=== PATIENT | female | born 1970 | race Caucasian/White ===

== ENCOUNTER 2016-10-26 18:19 | Emergency (ER) | payer OTHER ==
--- NOTE | ~2016-10-26 | US67 ---
[facility] A Service of [facility] RADIOLOGY TEXT RESULTS PATIENT: LATOYA MCRAE LOCATION: [facility] : 72 UNIT #: [id number] AGE: [address]: Jian Vega MD SEX: F ORDER DR: [id number] [facility] [address] [facility]. [place], [place] [address] [id number] E MR#: [id number] Acc #: [id number] NAME: LATOYA MCRAE : 1970 SEX: F STUDY DATE/TIME: 10/26/2016 20:29 UNIT: JUNAID ROOM: STUDY DESCRIPTION: Gallbladder Attending Physician: Jian Vega M.D. Ordering Physician: Jian Vega M.D. Primary Care Physician: Molly Crow M.D. MEDICAL IMAGING REPORT This report is preliminary unless electronic signature is present EXAM Gallbladder ultrasound, 10/26/2016 HISTORY 46-year-old female with abdominal pain for 2 weeks, worsening over the last 2 days. COMPARISON None. FINDINGS Real-time cottrell-scale and color Doppler imaging of the right upper quadrant of the abdomen was performed. The liver is normal in size and echogenicity without mass or ductal dilatation. Gallbladder is free of stones or wall thickening. There are some tiny echoes noted within the gallbladder, which are likely secondary to bowel gas artifact. No pericholecystic fluid. Common bile duct is within normal limits, measuring 3 mm in diameter. Visualized pancreas is unremarkable. Right kidney is within normal limits. IMPRESSION Negative gallbladder ultrasound. Dictated by... Mor Delcid M.D. THIS IS AN ELECTRONICALLY VERIFIED REPORT Mor Delcid M.D. at 10/26/2016 10:55 PM ALEC/maria dolores TD: 10/26/2016 22:32 JOB #: [id number] [facility] A Service of [facility] RADIOLOGY TEXT RESULTS PATIENT: LATOYA MCRAE LOCATION: [facility] : 72 UNIT #: [id number] AGE: [address]: Jian Vega MD SEX: F ORDER DR: MEDICAL IMAGING REPORT Page 1 of 1 COPY
[~2016-10-26 18:19] MED LIST: TRAZODONE PO; ZOLOFT PO
[2016-10-26 19:27] LABS: BASOPHIL# 0.1 X10e3 (0-0.3); BASOPHIL% 1.1 % (0-2.5); EOSINOPHIL# 0.2 X10e3 (0-0.7); EOSINOPHIL% 2.6 % (0.0-7.0); HEMATOCRIT 45.1 % (35.0-45.0); HEMOGLOBIN 15.2 gm/dL (12.0-16.0); LYMPHOCYTE% 24.5 % (17.0-45.0); MEAN CELL VOLUME 94.9 FL (83-96); MEAN CORPUSCULAR HGB CONC 33.7 g/dL (30-36); MEAN PLATELET VOLUME 7.4 FL (6.5-11.5); MONOCYTE# 0.4 X10e3 (0-1.0); MONOCYTE% 4.9 % (3.0-12.0); NEUTROPHIL# 5.6 X10e3 (1.5-7.1); NEUTROPHIL% 66.9 % (40-75); PLATELET COUNT 200 X10e3 (140-420); RED BLOOD COUNT 4.75 X10e (3.90-5.30); RED CELL DISTRIBUTION WIDTH 14.5 % (11.0-15.5); WHITE BLOOD COUNT 8.3 X10e3 (4.0-10.5)
[2016-10-26 19:29] LABS: DIFF IND NO
[2016-10-26 19:34] LABS: URINE SOURCE CLEAN CATCH
[2016-10-26 19:38] LABS: URINE APPEARANCE CLEAR; URINE BILIRUBIN NEG (NEG); URINE BLOOD NEG (NEG); URINE COLOR YELLOW; URINE GLUCOSE NEG (NEG); URINE KETONE 2+ (NEG); URINE LEUKOCYTE ESTERASE NEG (NEG); URINE NITRATE NEG (NEG); URINE PH 5.5 (5-8); URINE PROTEIN 1+ (NEG); URINE SPECIFIC GRAVITY 1.026 (1.003-1.035)
[2016-10-26 19:40] LABS: CULTURE INDICATED? YES; URBCS1 AUWI 0-2 /[HPF] (0-2); URINE BACTERIA AUWI 1+ (NEGATIVE); URINE SQUAMOUS EPITHELIAL CELL FEW /[HPF]
[2016-10-26 19:52] LABS: ALBUMIN SERUM 3.9 g/dL (3.5-5.0); BILIRUBIN, DIRECT 0.1 mg/dL (0.0-0.2); BILIRUBIN,INDIRECT 0.3 mg/dL (0.0-0.9); BILIRUBIN,TOTAL 0.4 mg/dL (0.2-2.0); BUN/CREATININE RATIO 12.22; CREATININE SERUM 0.9 mg/dL (0.6-1.4); GLOM FILT RATE Estimated 77.8 mL/min (>60); POTASSIUM 3.6 mmol/L (3.5-5.1)
[2017-03-01] MEDS ORDERED: TRAZODONE HCL300 MG PO (12:14)
[2017-03-01] MEDS ORDERED: ZOLOFT PO (12:14)
[2017-03-01] MEDS ORDERED: PROTONIX PO (12:15)
[2017-03-01] MEDS ORDERED: CARAFATE PO (12:15)
[2017-03-01] MEDS ORDERED: TIZANIDINE HCL4 M1 PO (12:15)
[2017-03-01] MEDS ORDERED: ZOFRAN PO (12:16)
== END 2016-10-26 22:20 | disposition home or self-care (01) ==
LOC: CED 18:19
PROVIDERS: Emergency Medicine
DX: R10.9 Unspecified abdominal pain (principal); R11.0 Nausea; M54.9 Dorsalgia, unspecified; F50.89 Other specified eating disorder; F17.200 Nicotine dependence, unspecified, uncomplicated; Z98.890 Other specified postprocedural states
CPT/HCPCS: 36415; 76705; 80048; 80076; 81003; 82150; 83690; 84703; 85025; 87086; 96361; 96374; 96375; 99284; J2270; J2405

== ENCOUNTER 2016-11-07 15:44 | Emergency (ER) | payer OTHER ==
--- NOTE | ~2016-11-07 | CT2 ---
[facility] A Service of [facility] RADIOLOGY TEXT RESULTS PATIENT: LATOYA MCRAE LOCATION: [facility] : 72 UNIT #: [id number] AGE: [address]: Vijay Ayoub DO SEX: F ORDER DR: [id number] [facility] [address] [place], [place] [address] [id number] E MR#: [id number] Acc #: [id number] NAME: LATOYA MCRAE : 1970 SEX: F STUDY DATE/TIME: 11/07/2016 18:13 UNIT: [facility] ROOM: STUDY DESCRIPTION: CT Abd and Pelv W Cont Attending Physician: Vijay Ayoub D.O. Ordering Physician: Vijay Ayoub D.O. Primary Care Physician: Molly Crow M.D. MEDICAL IMAGING REPORT This report is preliminary unless electronic signature is present EXAM CT abdomen and pelvis, 11/07/2016 HISTORY Abdominal pain. Right flank pain, nausea and vomiting for 2 days. Blood in emesis. Right upper quadrant pain. This CT exam was performed with one or more of the following radiation dose reduction techniques: automatic exposure control, adjustment of mA and/or kV according to patient size, and iterative reconstruction. FINDINGS CT abdomen and pelvis performed with intravenous administration 100 mL Isovue-370. Enteric contrast also administered. No prior CT abdomen and pelvis for comparison. Lung bases show dependent atelectasis. Inferior heart and pericardium unremarkable. Liver appears somewhat lower in overall density than the spleen. Nonspecific appearance on contrast-enhanced study but suggestive of diffuse fatty infiltration. More typical-appearing localized focal fatty infiltration in the left hepatic lobe flanking the falciform ligament. The liver is mildly enlarged measuring about 19.6 cm in craniocaudal extent. There is no clearly suspicious focal hepatic parenchymal abnormality. The gallbladder is unremarkable. Spleen, pancreas, adrenal glands unremarkable. Mild left pyelocaliectasis with no obstructing process seen. No ureteral dilatation. No perinephric inflammatory change. CT PELVIS: No inguinal adenopathy. Urinary bladder unremarkable. Uterus and adnexal regions unremarkable. No free fluid in the pelvis. No pelvic or retroperitoneal adenopathy. Distal esophagus, stomach, small bowel unremarkable. The appendix is in the deep right hemipelvis and is normal in appearance. Colon unremarkable. Vascular structures appear normal in caliber. No acute-appearing bony abnormality. Status post posterior STS. [facility] A Service of [facility] RADIOLOGY TEXT RESULTS PATIENT: LATOYA MCRAE LOCATION: [facility] : 74 UNIT #: [id number] AGE: [address]: Vijay Ayoub DO SEX: F ORDER DR: orthopedic fusion L2-L3 and anterior orthopedic fusion L3-L4. The visualized spinal hardware is intact. Degenerative changes L2-L3 with mild perhaps 1 mm retrolisthesis L2 on L3. Small posterior disc bulges L4-L5, L5-S1. No spinal stenosis. No acute-appearing bony abnormality. IMPRESSION 1. There is no clearly acute abnormality within the abdomen or pelvis. 2. Diffuse fatty infiltration of the liver with more localized areas of focal fatty infiltration flanking the falciform ligament in left hepatic lobe. 3. Mild hepatic enlargement. Liver measures 19.6 cm in craniocaudal extent. 4. Gallbladder, pancreas, appendix unremarkable. 5. No acute appearing renal abnormality. There is mild left-sided pyelocaliectasis with no obstructing process seen. No perinephric inflammatory change. No ureteral dilatation. 6. Remainder of alimentary canal unremarkable. 7. Uterus and adnexal structures unremarkable. 8. Posterior orthopedic fusion L2-L3, and anterior orthopedic fusion L3-L4. Orthopedic hardware intact without evidence of loosening or failure. No acute-appearing bony abnormality. Dictated by... Willam Garcia M.D. THIS IS AN ELECTRONICALLY VERIFIED REPORT Willam Garcia M.D. at 11/08/2016 2:21 PM ELAINA/francisco TD: 11/07/2016 23:10 JOB #: [id number] MEDICAL IMAGING REPORT Page 1 of 1 COPY
[2016-11-07 16:29] LABS: URINE SOURCE CLEAN CATCH
[2016-11-07 16:32] LABS: BASOPHIL# 0.1 X10e3 (0-0.3); BASOPHIL% 0.9 % (0-2.5); EOSINOPHIL# 0.1 X10e3 (0-0.7); HEMATOCRIT 49.3 % (35.0-45.0); HEMOGLOBIN 16.2 gm/dL (12.0-16.0); LYMPHOCYTE# 1.5 X10e3 (1.0-3.5); LYMPHOCYTE% 18.7 % (17.0-45.0); MEAN CELL VOLUME 95.6 FL (83-96); MEAN CORPUSCULAR HEMOGLOBIN 31.4 PG (28-34); MEAN CORPUSCULAR HGB CONC 32.9 g/dL (30-36); MEAN PLATELET VOLUME 7.4 FL (6.5-11.5); MONOCYTE# 0.4 X10e3 (0-1.0); MONOCYTE% 5.2 % (3.0-12.0); NEUTROPHIL% 74.2 % (40-75); PLATELET COUNT 242 X10e3 (140-420); RED BLOOD COUNT 5.15 X10e (3.90-5.30); RED CELL DISTRIBUTION WIDTH 14.6 % (11.0-15.5)
[2016-11-07 16:38] LABS: URINE APPEARANCE CLEAR; URINE BILIRUBIN NEG (NEG); URINE BLOOD NEG (NEG); URINE COLOR YELLOW; URINE GLUCOSE NEG (NEG); URINE KETONE NEG (NEG); URINE LEUKOCYTE ESTERASE NEG (NEG); URINE NITRATE NEG (NEG); URINE PH 5.5 (5-8); URINE PROTEIN NEG (NEG); URINE SPECIFIC GRAVITY 1.005 (1.003-1.035); URINE UROBILINOGEN 0.2 MG/DL (NEG)
[2016-11-07 16:42] LABS: DIFF IND NO
[2016-11-07 16:45] LABS: CULTURE INDICATED? NO
[2016-11-07 16:55] LABS: POC - CKMB <1.0 ng/mL (0.0-7.9); POC - TROPONIN <0.05 ng/mL (<=0.05)
[2016-11-07 16:58] LABS: PROTHROMBIN TIME (PATIENT) 10.3 SECONDS (9.6-11.5)
[2016-11-07 17:01] LABS: ALBUMIN SERUM 4.4 g/dL (3.5-5.0); BILIRUBIN, DIRECT 0.1 mg/dL (0.0-0.2); BILIRUBIN,INDIRECT 0.3 mg/dL (0.0-0.9); BILIRUBIN,TOTAL 0.4 mg/dL (0.2-2.0); BUN/CREATININE RATIO 9.09; CALCIUM SERUM 9.3 mg/dL (8.4-10.2); CREATININE SERUM 1.1 mg/dL (0.6-1.4); POTASSIUM 3.8 mmol/L (3.5-5.1)
[2017-03-01] MEDS ORDERED: TRAZODONE HCL300 MG PO (12:14)
[2017-03-01] MEDS ORDERED: ZOLOFT PO (12:14)
[2017-03-01] MEDS ORDERED: CARAFATE PO (12:15)
[2017-03-01] MEDS ORDERED: PROTONIX PO (12:15)
[2017-03-01] MEDS ORDERED: TIZANIDINE HCL4 M1 PO (12:15)
[2017-03-01] MEDS ORDERED: ZOFRAN PO (12:16)
== END 2016-11-07 20:00 | disposition home or self-care (01) ==
LOC: CED 15:44
PROVIDERS: Emergency Medicine
DX: R10.9 Unspecified abdominal pain (principal); R11.2 Nausea with vomiting, unspecified; R19.7 Diarrhea, unspecified; Z79.899 Other long term (current) drug therapy; F17.200 Nicotine dependence, unspecified, uncomplicated
CPT/HCPCS: 36415; 74177; 80048; 80076; 81003; 82553; 83690; 84484; 84703; 85025; 85610; 85730; 96361; 96374; 96375; 99284; C9113; J2270; J2405; Q9967

== ENCOUNTER 2016-12-19 10:50 | Inpatient (IN) | payer OTHER ==
--- NOTE | ~2016-12-19 | A ---
[facility] Nutrition Therapy DATE: 12/20/16 Patient: LATOYA MCRAE Physician: XAVIER Address: [address] [facility] Room/Bed: [address] [place] [address], Zip: [place] [address] Admit Date: 12/19/16 Date of : 74 Height: 5 9 Weight: 130 59 NUTRITIONAL ASSESSMENT: REASON: 2 NUTRITION RISK PT RE: WEIGHT LOSS PT IS 46 Y.O. FEMALE ADMITTED FOR ABD PAIN PMH: NO H&P IN MEDITECH /CHART Anthropometrics: 5'9", WT: 130# (59 KG), BMI: 19.2, 90%IBW Labs: LIPASE: 20, GFR: 54.9 Meds: PHENERGAN, PROTONIX, KCL I/O & Bowel function: 2109/1700 Skin Integrity: NO KNOWN SKIN ISSUES Estimated Nutrition Needs: INCREASED NEEDS 2' WEIGHT LOSS NOTED, CURRENT CONDITION Assessment: CHART REVIEWED AND EVENTS NOTED. PT SEEN FOR WEIGHT LOSS. PT REPORTS DECREASED PO INTAKE AND APPETITE PAST SEVERAL MONTHS 2' CHRONIC DIARRHEA AND VOMITING NOTED. PT AND FAMILY REPORT PT HAS LOST ~15# PAST 6 MONTHS/10% MODERATE WEIGHT LOSS NOTED. PLANS IN PLACE FOR PT'S DIET TO ADVANCE TO FULL LIQUID S/P EGD. EGD REVEALED GASTRITIS AND GASTRIC ULCER. THIS RD ENCOURGAED SLOW GRADUAL PO INTAKE + SUPPLEMENTS, PT AGREED TO ENSURE SHAKES BID, RD WILL ORDER. RD ALSO PROVIDED WRITTEN AND VERBAL LOW FIBER DIET EDUCATION. PT AND FAMILY DEMONSTRATED UNDERSTANDING OF THE TOPIC, REPORTED NO DIET QUESTIONS. RD TO FOLLOW/REMAIN AVAILABLE. SEE RECOMMENDATIONS BELOW. Dx: INADEQUATE PROTEIN-ENERGY INTAKE R/T CHRONIC DIARRHEA, VOMITING AEB PT REPORT OF DECREASED PO INTAKE AND APPETITE, ~15# WEIGHT LOSS IN PAST 6 MONTHS (10%), LOW BMI NOTED. Intervention: 1. FULL LIQUID DIET 2. ENSURE SHAKES BID 3. WRITTEN/VERBAL LOW FIBER DIET EDUCATION Monitoring, Evaluation and Goals: 1. ORAL INTAKE; ADVANCE DIET AND TOLERATE >50% OF MEALS AND SUPPLEMENTS 2. WEIGHTS; PREVENT FURTHER WEIGHT LOSS; PRESERVE LEAN BODY MASS 3. GI; PROMOTE REGULAR BOWEL FUNCTION MONITOR: -DIET ADVANCEMENT [facility] Nutrition Therapy DATE: 12/20/16 Patient: LATOYA MCRAE Physician: XAVIER Address: [address] Room/Bed: [address] [place] [address], Zip: [place] [address] Admit Date: 12/19/16 Date of : 74 Height: 5 9 Weight: 130 59 -PO INTAKE/APPETITE -WEIGHTS -SUPPLEMENT INTAKE -EDUCATION NEEDS Recommendations: 1. PLEASE ORDER [place]Y ENSURE SHAKES BID W/MEALS 2. ONCE MEDICALLY FEASIBLE, ADVANCE DIET TOLERATED TO LOW FIBER 2' CURRENT CLINICAL CONDITION 3. APPRECIATE FAMILY AND STAFF TO ENCOURAGE ADEQUATE PO INTAKE RD WILL F/U PER PROTOCOL PT IS MILD/MODERATELY COMPROMISED Respectfully, BOBBI SEGURA MS, RD, LD Food and Nutritional Services [facility] cc: client file
--- NOTE | ~2016-12-19 | NM22 ---
[facility] A Service of [facility] RADIOLOGY TEXT RESULTS PATIENT: LATOYA MCRAE LOCATION: A 230-01 : 74 UNIT #: [id number] AGE: [address]: Chris Spicer III, MD SEX: F ORDER DR: [id number] [facility] [address]. [place], [place] [address] [id number] I MR#: [id number] Acc #: [id number] NAME: LATOYA MCRAE : 1970 SEX: F STUDY DATE/TIME: 12/19/2016 13:56 UNIT: A ROOM: 230 STUDY DESCRIPTION: NM Hepatobiliary W GB Pharm Attending Physician: Chris Spicer III, M.D. Ordering Physician: Chris Spicer III, M.D. Primary Care Physician: Molly Crow M.D. MEDICAL IMAGING REPORT This report is preliminary unless electronic signature is present EXAM HIDA scan with Kinevac 12/19/2016 HISTORY 2-month history of intermittent right upper quadrant abdominal/epigastric pain, worsening over the past month. TECHNIQUE Study of 45.67 mCi Tc-99m Choletec followed by 1.2 mcg of Kinevac. FINDINGS Following Choletec administration, there is prompt uptake, clearance from blood pool, excretion into the biliary tree, including the gallbladder and small bowel. Following Kinevac administration, calculated gallbladder ejection fraction is 82%. IMPRESSION Normal HIDA scan and normal gallbladder ejection fraction of 82%. STAT * RESULT Dictated by... Andres Banks M.D. THIS IS AN ELECTRONICALLY VERIFIED REPORT Andres Banks M.D. at 12/28/2016 10:23 AM TEV/pcl TD: 12/19/2016 16:29 [facility] A Service [facility] RADIOLOGY TEXT RESULTS PATIENT: LATOYA MCRAE LOCATION: [facility] 230-01 : 74 UNIT #: [id number] AGE: [address]: Chris Spicer III, MD SEX: F ORDER DR: JOB #: [id number] MEDICAL IMAGING REPORT Page 1 of 1 COPY
--- NOTE | ~2016-12-19 | OR ---
Unit #: [id number] #: [id number] Patient: LATOYA MCRAE [id number] [address] [address] [id number] I MR#: [id number] NAME: LATOYA MCRAE ROOM: 230 Date of Procedure: 12/20/2016 Admission Date: 12/19/2016 Surgeon: Davide Gardner M.D. : 1970 Attending Physician: Chris Spicer III, M.D. Primary Care Physician: Molly Crow M.D. OPERATIVE REPORT PREOPERATIVE DIAGNOSES Severe nausea and vomiting and chronic diarrhea. POSTOPERATIVE DIAGNOSIS Wdgbxqli-ex-qegpra gastritis with a superficial gastric ulcer in the antrum. PROCEDURE PERFORMED Esophagogastroduodenoscopy to third portion of duodenum with biopsy of the antrum for CLOtesting and pathology. ANESTHESIA Monitored anesthesia. INDICATIONS FOR PROCEDURE Ms. Mcrae is a 46-year-old female, who has been complaining of epigastric pain, associated nausea, vomiting, and weight loss for several months. She has also had some chronic diarrhea for about 3 months. She states she has lost 15 pounds and has had anorexia. CT scan, ultrasound, HIDA scan all were normal and her comprehensive metabolic panel, amylase, lipase, and CBC were normal. She does relate that she was treated for sinusitis and bronchitis with antibiotics several months ago. She denies any melena, hematochezia, or hematemesis. She is on multiple chronic medications for back pain as she has had 2 back surgeries with instrumentation. DESCRIPTION OF PROCEDURE The patient was transported from her hospital room to the endoscopy suite and after appropriate monitoring, a bite block was placed and she was sedated by the anesthesiologist. The endoscope was passed through the oral cavity in the esophagus and under direct vision, we passed through the esophagus into the stomach. The GE junction was well demarcated at 40 cm. There was no hiatal hernia. No esophagitis and no Moser mucosa. The stomach was insufflated. As we passed towards the antrum, she had progressively worsening gastritis and in the antrum, she had a very superficial gastric ulcer. It was benign in appearance. I was able to pass through the pylorus down the third portions of the duodenum. The duodenum and duodenal bulb were normal. As I came back into the antrum, a biopsy for CLOtest was taken and then biopsies from the ulcer edge were taken for pathology. In retroflexing the scope above the incisura, the upper fundus and cardia showed no other pathology. In retrograde visualization, the esophagus and larynx were normal. The patient Unit #: [id number] #: [id number] Patient: LATOYA MCRAE tolerated the procedure well and was transported to recovery in stable condition. She will be started on a proton pump inhibitor and Carafate for her gastric ulcer and gastritis as we await the pathology and CLOtesting. Stool studies have been ordered as have celiac disease serology. We will start her on a full liquid diet and advance her as she tolerates. After the stool studies were obtained since she has had previous treatment with antibiotics for a bronchitis and sinus infection, we will empirically start some oral vancomycin until the C. difficile testing rules out C difficile colitis or enteritis. Dictated by... Pedro Kaur/dhiraj TD: 12/20/2016 10:43 JOB #: [id number] OPERATIVE REPORT Page 1 of 1 X Davide Gardner MD PROCEDURE OPERATIVE NOTE
--- NOTE | ~2016-12-19 | DS ---
Unit #: [id number] #: [id number] Patient: LATOYA MCRAE [id number] [address] [place], [place] [address] [id number] I MR#: [id number] NAME: LATOYA MCRAE ROOM: 230 Age: 46 Sex: F Admission Date: 12/19/2016 : 1970 Discharge Date: 12/22/2016 Attending Physician: Chris Spicer III, M.D. Primary Care Physician: Molly Crow M.D. DISCHARGE SUMMARY DISCHARGE DIAGNOSIS Midepigastric abdominal pain secondary to peptic ulcer disease with possible irritable bowel syndrome and colitis. OPERATIVE PROCEDURE Esophagogastroduodenoscopy. DISCHARGE MEDICATIONS Home medications plus: 1. Flagyl 500 mg 1 p.o. b.i.d. 2. Carafate 1 g 1 p.o. t.i.d. 3. Protonix 40 mg 1 p.o. b.i.d. HISTORY OF PRESENT ILLNESS AND HOSPITAL COURSE This is a 46-year-old, white female who presented with nausea, vomiting, and tense crampy abdominal pain. It was felt that she may have either some type of peptic ulcer disease or inflammatory bowel disease. She said she had a funny feeling in her substernal area. We went ahead and did a HIDA biliary scan, which was normal. We also did upper endoscopy per Dr. Gardner, which showed gastric ulcer disease and gastritis. She was placed on oral Flagyl for possible irritable bowel symptoms. Multiple stool cultures were taken. It was suggested to the patient that she may need eventually an outpatient colonoscopy. Patient, however, at this point in time, has improved. She is a regular diet. She is tolerating it quite nicely. She was ready to be discharged to come back to our clinic. We will go ahead and put her on Protonix, Carafate, and Flagyl orally. We will see her back for followup in the clinic. Dictated by... Pedro Grimaldo/guicho TD: 12/22/2016 11:55 JOB #: [id number] Unit #: [id number] #: [id number] Patient: LATOYA MCRAE DISCHARGE SUMMARY Page 1 of 1 X Dwayne Macdonald MD DISCHARGE SUMMARY
[2016-12-19] MEDS ORDERED: HYDROCODON-ACE1 EAC7 PO (12:50)
[2016-12-19] MEDS ORDERED: GABAPENTIN600 MG PO (12:50)
[2016-12-19] MEDS ORDERED: IBUPROFEN800 MG PO (12:51)
[2016-12-19] MEDS ORDERED: PROTONIX PO (12:54)
[2016-12-19] MEDS ORDERED: ZOFRAN8 MG PO (12:54)
[2016-12-19] MEDS ORDERED: PHENERGAN25 M1 PO (12:56)
[2016-12-19] MEDS ORDERED: ZOLOFT100 MG PO (12:57)
[2016-12-19] MEDS ORDERED: TRAZODONE HCL150 MG PO (12:57)
[2016-12-19] MEDS ORDERED: ZANAFLEX4 M1 PO (12:57)
[2016-12-19 16:06] LABS: HEMATOCRIT 49.6 % (35.0-45.0); HEMOGLOBIN 16.2 gm/dL (12.0-16.0); MEAN CELL VOLUME 93.9 FL (83-96); MEAN CORPUSCULAR HEMOGLOBIN 30.6 PG (28-34); MEAN CORPUSCULAR HGB CONC 32.6 g/dL (30-36); MEAN PLATELET VOLUME 7.4 FL (6.5-11.5); RED BLOOD COUNT 5.29 X10e (3.90-5.30); RED CELL DISTRIBUTION WIDTH 14.3 % (11.0-15.5); WHITE BLOOD COUNT 7.5 X10e3 (4.0-10.5)
[2016-12-19 16:41] LABS: ALBUMIN SERUM 4.6 g/dL (3.5-5.0); BILIRUBIN,TOTAL 0.6 mg/dL (0.2-2.0); BUN/CREATININE RATIO 10.83; CALCIUM SERUM 9.6 mg/dL (8.4-10.2); CREATININE SERUM 1.2 mg/dL (0.6-1.4); GLOM FILT RATE Estimated 54.9 mL/min (>60); POTASSIUM 4.6 mmol/L (3.5-5.1); PROTEIN TOTAL SERUM 8.1 g/dL (6.0-8.3)
[2016-12-19 18:32] LABS: URINE APPEARANCE CLEAR; URINE BILIRUBIN NEG (NEG); URINE BLOOD NEG (NEG); URINE COLOR YELLOW; URINE GLUCOSE NEG (NEG); URINE KETONE TRACE (NEG); URINE LEUKOCYTE ESTERASE NEG (NEG); URINE NITRATE NEG (NEG); URINE PROTEIN 1+ (NEG); URINE SPECIFIC GRAVITY 1.028 (1.003-1.035)
[2016-12-19 18:36] LABS: U HYALINE CASTS AUWI 0-2 /[LPF]; URBCS1 AUWI 0-2 /[HPF] (0-2); URINE BACTERIA AUWI NEG (NEGATIVE); URINE SQUAMOUS EPITHELIAL CELL OCC /[HPF]; UWBCS1 AUWI 0-2 (0-5)
[2016-12-22] MEDS ORDERED: FLAGYL PO (06:21)
[2016-12-22] MEDS ORDERED: CARAFATE1 GM PO (06:21)
[2016-12-22] MEDS ORDERED: PROTONIX PO (06:22)
[2016-12-23 20:52] LABS: GLIADIN IGA AB 5 Units (<20); GLIADIN IGG AB 4 Units (<20); RETICULIN IGA SCREEN W/REFLEX Negative (Negative); TISSUE TRANSGLUTAMINASE IGA AB 1 U/mL (<4)
[2017-03-01] MEDS ORDERED: TRAZODONE HCL300 MG PO (12:14)
[2017-03-01] MEDS ORDERED: ZOLOFT PO (12:14)
[2017-03-01] MEDS ORDERED: TIZANIDINE HCL4 M1 PO (12:15)
[2017-03-01] MEDS ORDERED: PROTONIX PO (12:15)
[2017-03-01] MEDS ORDERED: CARAFATE PO (12:15)
[2017-03-01] MEDS ORDERED: ZOFRAN PO (12:16)
== END 2016-12-22 07:46 | disposition home or self-care (01) | DRG 384 ==
LOC: C2A 10:50 → UNDOADMOB 10:54 → C2A 12-22 07:46
PROVIDERS: Specialist; Surgery
PROC: 0DB78ZX Excision of Stomach, Pylorus, Via Natural or Artificial Opening Endoscopic, Diagnostic (ICD-10-PCS; principal; 2016-12-20 09:45)
DX: K25.9 Gastric ulcer, unspecified as acute or chronic, without hemorrhage or perforation (principal); Z68.1 Body mass index [BMI] 19.9 or less, adult; K29.70 Gastritis, unspecified, without bleeding; K58.0 Irritable bowel syndrome with diarrhea; R63.6 Underweight; F41.9 Anxiety disorder, unspecified; Z87.891 Personal history of nicotine dependence; E86.0 Dehydration
CPT/HCPCS: 78227; 80053; 81003; 82150; 82274; 83516; 83630; 83690; 85027; 86255; 87045; 87077; 87177; 87209; 87427; 87493; 87899; 88305; 88312; A9537; C9113; J2270; J2550; J2805

== ENCOUNTER 2017-01-31 15:22 | Emergency (ER) | payer OTHER ==
[~2017-01-31] VITALS: Ht 175.3 cm; Wt 61.2 kg
--- NOTE | ~2017-01-31 | CR127 ---
[facility] A Service of [facility] RADIOLOGY TEXT RESULTS PATIENT: LATOYA MCRAE LOCATION: [place] : 74 UNIT #: [id number] AGE: [address]: Cary Uriarte APRN SEX: F ORDER DR: [id number] [facility] [address] [place], [place] [address] [id number] E MR#: [id number] Acc #: [id number] NAME: LATOYA MCRAE : 1970 SEX: F STUDY DATE/TIME: 01/31/2017 15:48 UNIT: [facility] ROOM: STUDY DESCRIPTION: CR Foot Complete Min 3 View Rt Attending Physician: Cary Uriarte A.P.R.N. Referring Physician: Gregorio Neely M.D. Ordering Physician: Ed Misha Smiley M.D. Primary Care Physician: Molly Crow M.D. MEDICAL IMAGING REPORT This report is preliminary unless electronic signature is present EXAM Right foot, complete, 3 views. HISTORY Dropped a chair on her foot yesterday and has pain at the dorsum of the foot. COMMENT Three views of the right foot are reviewed. COMPARISON No previous. FINDINGS No acute fracture, dislocation, or radiopaque foreign body. IMPRESSION Negative plain film assessment, right foot. Dictated by... Calli Little M.D. THIS IS AN ELECTRONICALLY VERIFIED REPORT Calli Little M.D. at 01/31/2017 11:33 PM GRETCHEN/susan TD: 01/31/2017 22:18 JOB #: [id number] MEDICAL IMAGING REPORT Page 1 of 1 COPY
[~2017-01-31 15:22] MED LIST changes: +CARAFATE1 GM PO; +FLAGYL PO; +GABAPENTIN600 MG PO; +HYDROCODON-ACE1 EAC7 PO; +IBUPROFEN800 MG PO; +PHENERGAN25 M1 PO; +PROTONIX PO; +TRAZODONE HCL150 MG PO; +ZANAFLEX4 M1 PO; +ZOFRAN8 MG PO; +ZOLOFT100 MG PO
[2017-03-01] MEDS ORDERED: TRAZODONE HCL300 MG PO (12:14)
[2017-03-01] MEDS ORDERED: ZOLOFT PO (12:14)
[2017-03-01] MEDS ORDERED: PROTONIX PO (12:15)
[2017-03-01] MEDS ORDERED: CARAFATE PO (12:15)
[2017-03-01] MEDS ORDERED: TIZANIDINE HCL4 M1 PO (12:15)
[2017-03-01] MEDS ORDERED: ZOFRAN PO (12:16)
== END 2017-01-31 16:45 | disposition home or self-care (01) ==
LOC: CED 15:22 → CFTX 15:22
DX: S90.31XA Contusion of right foot, initial encounter (principal); F17.210 Nicotine dependence, cigarettes, uncomplicated; W20.8XXA Other cause of strike by thrown, projected or falling object, initial encounter; Y92.009 Unspecified place in unspecified non-institutional (private) residence as the place of occurrence of the external cause
CPT/HCPCS: 29540; 73630; 99283

== ENCOUNTER → 2017-03-03 | Day surgery (SDC) | payer OTHER ==
[~2017-03-03] MED LIST changes: +CARAFATE PO; +TIZANIDINE HCL4 M1 PO; +TRAZODONE HCL300 MG PO; +ZOFRAN PO
--- NOTE | ~2017-03-03 | OR ---
Unit #: [id number] #: [id number] Patient: LATOYA MCRAE [id number] [address] [place], [place] [address] [id number] MR#: [id number] NAME: LATOYA MCRAE ROOM: Date of Procedure: 03/03/2017 Admission Date: 03/03/2017 Surgeon: Matthew Dillon M.D. : 1970 Attending Physician: Matthew Dillon M.D. Referring Physician: Matthew Dillon M.D. Primary Care Physician: Molly Crow M.D. OPERATIVE REPORT PROCEDURE PERFORMED Esophagogastroduodenoscopy with biopsy, colonoscopy with polypectomy, colonoscopy with biopsy, colonoscopy with tattooing. INDICATIONS FOR PROCEDURE Abdominal pain, diarrhea, history of peptic ulcer disease, undergoing evaluation with upper endoscopy and colonoscopy. MEDICATIONS Monitored anesthesia. POSTOPERATIVE FINDINGS 1. Patchy esophagitis esophagus. Biopsies taken from these areas. 2. Small hiatal hernia. 3. Chronic appearing gastritis. No ulcer seen. Biopsies taken. 4. Normal duodenum and distal duodenum. 5. Biopsies taken in descending duodenum looking for Clostridium difficile. 6. Large 1.5 cm flat polyp in ascending colon, removed in piecemeal, two hemoclips were applied to this area. 7. Tattooing was then carried out and showed identification in future. 8. Rest of the colonic mucosa was normal. Random biopsy was taken looking for microscopic colitis. 9. Small internal hemorrhoids. 10. Good prep. PLAN Follow up on pathology report. Repeat colonoscopy in 3 years. Continue PPI therapy for now. DESCRIPTION OF PROCEDURE The patient was explained of the procedure risks and benefits along with risks and benefits of anesthesia. She was brought to the endoscopy room. Propofol anesthesia was given. Bite block was placed. The scope was passed down the mouth into esophagus, stomach, duodenum, and distal duodenum. Findings as described. Biopsies taken. Gently, I pulled the scope out of the patient's mouth. She tolerated it well. At this time, she was turned around and repositioned for colonoscopy. Rectal exam was done, which was normal. Colonoscope was lubricated, Unit #: [id number] #: [id number] Patient: LATOYA MCRAE passed up the rectum, and advanced under direct vision all the way to cecum. Cecum was identified by ileocecal valve and appendiceal orifice. Terminal ileum was intubated, showed normal mucosa. Colonic mucosa was normal. Random biopsy was taken. Polyp in ascending colon was large flat, it was removed in piecemeal. Two hemoclips were applied. Tattooing was carried out. The scope was then gently pulled out of the patient's mouth. She tolerated it well. No major complications seen. Dictated by... Pedro Mccarthy/dhiraj TD: 03/03/2017 16:15 JOB #: [id number] OPERATIVE REPORT Page 1 of 1 X Matthew Dillon MD X PROCEDURE OPERATIVE NOTE
[2017-03-03 09:51] LABS: BASOPHIL# 0.1 X10e3 (0-0.3); BASOPHIL% 1.1 % (0-2.5); EOSINOPHIL# 0.2 X10e3 (0-0.7); EOSINOPHIL% 2.8 % (0.0-7.0); HEMATOCRIT 43.7 % (35.0-45.0); HEMOGLOBIN 14.7 gm/dL (12.0-16.0); LYMPHOCYTE% 15.9 % (17.0-45.0); MEAN CELL VOLUME 94.2 FL (83-96); MEAN CORPUSCULAR HEMOGLOBIN 31.6 PG (28-34); MEAN CORPUSCULAR HGB CONC 33.6 g/dL (30-36); MEAN PLATELET VOLUME 7.8 FL (6.5-11.5); MONOCYTE# 0.4 X10e3 (0-1.0); MONOCYTE% 5.5 % (3.0-12.0); NEUTROPHIL# 4.9 X10e3 (1.5-7.1); NEUTROPHIL% 74.7 % (40-75); PLATELET COUNT 148 X10e3 (140-420); RED BLOOD COUNT 4.64 X10e (3.90-5.30); RED CELL DISTRIBUTION WIDTH 14.9 % (11.0-15.5); WHITE BLOOD COUNT 6.5 X10e3 (4.0-10.5)
[2017-03-03 09:57] LABS: DIFF IND NO
[2017-03-03 10:32] LABS: ALBUMIN SERUM 4.1 g/dL (3.5-5.0); BILIRUBIN,TOTAL 0.5 mg/dL (0.2-2.0); BUN/CREATININE RATIO 11.81; CALCIUM SERUM 8.9 mg/dL (8.4-10.2); CREATININE SERUM 1.1 mg/dL (0.6-1.4); POTASSIUM 3.9 mmol/L (3.5-5.1); PROTEIN TOTAL SERUM 7.1 g/dL (6.0-8.3)
[2017-03-06 16:28] LABS: GLIADIN IGA AB 5 Units (<20); GLIADIN IGG AB 4 Units (<20); RETICULIN IGA SCREEN W/REFLEX Negative (Negative); TISSUE TRANSGLUTAMINASE IGA AB 1 U/mL (<4)
== END | disposition home or self-care (01) ==
LOC: COPS 07:23
PROVIDERS: Internal Medicine
DX: K63.5 Polyp of colon (principal); K29.50 Unspecified chronic gastritis without bleeding; K44.9 Diaphragmatic hernia without obstruction or gangrene; K64.8 Other hemorrhoids; K21.9 Gastro-esophageal reflux disease without esophagitis; F17.210 Nicotine dependence, cigarettes, uncomplicated; Z86.19 Personal history of other infectious and parasitic diseases; Z79.899 Other long term (current) drug therapy; Z98.1 Arthrodesis status
CPT/HCPCS: 80053; 83516; 84443; 85025; 86255; 88305; 88312